=== PATIENT | male | born 1965 | race African-American/Black ===

== ENCOUNTER 2017-04-10 12:30 | Emergency (ER) | payer OTHER ==
--- NOTE | ~2017-04-10 | CT71 ---
[facility] A Service of [facility] RADIOLOGY TEXT RESULTS PATIENT: LOVE DOMINGUEZ LOCATION: [facility] : 63 UNIT #: [id number] AGE: [address]: SHAMIKA DENSON MD SEX: M ORDER DR: [id number] [facility] [address]. [place], [place] [address] [id number] I MR#: [id number] Acc #: [id number] NAME: LOVE DOMINGUEZ : 1965 SEX: M STUDY DATE/TIME: 04/10/2017 14:39 UNIT: CEDOF ROOM: 85040 STUDY DESCRIPTION: CT Head Wo Contrast Attending Physician: Shamika Denson M.D. Ordering Physician: Priyank Royal D.O. Primary Care Physician: Liudmila De Santiago M.D. MEDICAL IMAGING REPORT This report is preliminary unless electronic signature is present EXAM Noncontrast head CT. HISTORY Dizziness, weakness, fell today. History of hypertension. FINDINGS Axial noncontrast imaging of the brain demonstrates an approximately 3-cm focus of decreased attenuation within the left cerebellar hemisphere, which may represent a subacute or acute infarct. No hemorrhagic components identified. No mass effect or midline shift. The remainder of the brain parenchyma appears normal. No abnormal extraaxial fluid collections. Bony calvaria, skull base, mastoids and sinuses unremarkable. IMPRESSION A focal area of decreased attenuation in the left cerebellar hemisphere may represent an acute or subacute infarct. no mass effect or hemorrhagic transformation. Dictated by... Jos Walker M.D. THIS IS AN ELECTRONICALLY VERIFIED REPORT Jos Walker M.D. at 04/10/2017 11:17 PM Angela TD: 04/10/2017 19:02 JOB #: [id number] MEDICAL IMAGING REPORT [facility] A Service of [facility] RADIOLOGY TEXT RESULTS PATIENT: LOVE DOMINGUEZ LOCATION: [facility] : 63 UNIT #: [id number] AGE: [address]: SHAMIKA DENSON MD SEX: M ORDER DR: Page 1 of 1 COPY
--- NOTE | ~2017-04-10 | EKG ---
PATIENT: LOVE DOMINGUEZ UNIT #: [id number] Ventricular Rate: 55 BPM Atrial Rate: 55 BPM P-R Interval: 204 ms QRS Duration: 108 ms Q-T Interval: 492 ms QTC Calculation(Bezet): 470 ms P Zach[place]: 62 degrees Calculated R Zach[place]: -23 degrees Calculated T Zachary: -15 degrees Diagnosis Line: Sinus bradycardia Diagnosis Line: Nonspecific T wave abnormality Diagnosis Line: Prolonged QT Diagnosis Line: Abnormal ECG Diagnosis Line: When compared with ECG of 23-MAY-2014 09:03, Diagnosis Line: No significant change was found Diagnosis Line: Confirmed by TIFFANY MCGARRY MD ([id number]) on Diagnosis Line: 04/10/2017 10:12:00 PM INTERPRETING MD: VINEET
--- NOTE | ~2017-04-10 | HP ---
Unit #: [id number] #: [id number] Patient: LOVE DOMINGUEZ [id number] [address] [place], [place] [address] [id number] E MR#: [id number] NAME: LOVE DOMINGUEZ ROOM: Age: 52 Sex: M Admission Date: 04/10/2017 : 1965 Attending Physician: Priyank Royal D.O. Primary Care Physician: Liudmila De Santiago M.D. HISTORY AND PHYSICAL CHIEF COMPLAINT Dizziness. HISTORY OF PRESENT ILLNESS The patient is a 49-year-old male with a remote history of pulmonary embolus, arthritis and hypertension. He was brought to the emergency room complaining of dizziness. The patient stated he had worked outside in the sun and has been feeling dizzy since this morning. The patient is not able to stand up and had multiple falls today. The patient was checked in by his girlfriend, who called EMS to bring him to the hospital. The patient had a CT of the head that showed low attenuation in the left cerebral hemisphere, concerning for acute/subacute CVA. The patient is being admitted for the above reasons. The patient complains of nausea and vomiting and headache. Denies any cough. Denies any fever or chest pains. PAST MEDICAL HISTORY 1. History of PE. 2. Pneumonia. 3. Hypertension. 4. Possible bone cancer. PAST SURGICAL HISTORY 1. Bilateral knee arthroscopy. 2. Right knee replacement times two. SOCIAL HISTORY Smokes a pack of cigarettes daily. Denies alcohol or any illicit drug abuse. FAMILY HISTORY Reviewed and none. ALLERGIES Penicillin and aspirin. HOME MEDICATIONS The patient is on ibuprofen and Flexeril. REVIEW OF SYSTEMS Fourteen point review of systems was performed and only pertinent positive findings are described above. The remaining are negative. PHYSICAL EXAMINATION GENERAL: The patient is lying on the bed, not in acute distress. The Unit #: [id number] #: [id number] Patient: LOVE DOMINGUEZ patient is sleepy. VITALS: Temperature 97.6, pulse 59, respiratory rate 14, blood pressure 136/89, saturating 94% on room air. HEENT: Head atraumatic, normocephalic. Pupils equal, round and reactive to light and accommodation. Extraocular movements are intact. Dry mucous membranes. NECK: Supple. LUNGS: Decreased air entry at the bases. Positive for rhonchi. HEART: Regular rate and rhythm. ABDOMEN: Soft. Positive bowel sounds. EXTREMITIES: No cyanosis or clubbing. NEUROLOGIC: The patient is more sleepy and states that he is unable to move the extremities secondary to them feeling heavy. DIAGNOSTIC STUDIES IMAGING: Chest x-ray shows the heart size appears larger than 2014. This may represent true cardiac enlargement, although exaggeration of the contour may be secondary to slight patient rotation toward the left. Mild right infrahilar infiltrate. No pleural effusion or pneumothorax. LABORATORY: Glucose 115, sodium 138, potassium 3.7, chloride 103, bicarb 25, glucose 139, BUN 10, creatinine 0.9, AST 19, ALT 19, alkaline phosphatase 74, albumin 4, INR 1. White blood cell count 8.3, hemoglobin 14, hematocrit 43, platelets 158. ASSESSMENT 1. Stroke, CVA, acute/subacute. 2. Dizziness. 3. Nausea and vomiting. 4. Bradycardia. EKG shows sinus bradycardia at a rate of 55 beats per minute. QTC 470. Chest x-ray shows mild right hilar infiltrate. Probable pneumonia versus atypical. PLAN Admit to inpatient. The patient will have neurology consultation. Check MRI and echo. Continue with Zofran for supportive care. The patient will be on empiric IV antibiotics, levofloxacin for concerning pneumonia. Further recommendations will follow. Dictated by Luis Mackenzie/malini TD: 04/10/2017 16:19 JOB #: [id number] Unit #: [id number] #: [id number] Patient: LOVE DOMINGUEZ HISTORY AND PHYSICAL Page 1 of 1 X SHAMIKA JAMES MD HISTORY AND PHYSICAL
--- NOTE | ~2017-04-10 | CR72 ---
[facility] A Service of [facility] RADIOLOGY TEXT RESULTS PATIENT: LOVE DOMINGUEZ LOCATION: [facility] : 63 UNIT #: [id number] AGE: [address]: Priyank Royal DO SEX: M ORDER DR: [id number] [facility] [address] [place], [place] [address] [id number] E MR#: [id number] Acc #: [id number] NAME: LOVE DOMINGUEZ : 1965 SEX: M STUDY DATE/TIME: 04/10/2017 13:11 UNIT: [facility] ROOM: STUDY DESCRIPTION: CR Chest Single View Portable Attending Physician: Priyank Royal D.O. Ordering Physician: Priyank Royal D.O. Primary Care Physician: Liudmila Pro MEDICAL IMAGING REPORT This report is preliminary unless electronic signature is present EXAM AP portable chest, 04/10/2017 at 13:11 HISTORY Dizziness and weakness today. Fell at home. History of pulmonary embolism. History of smoking. Hypertension. COMPARISON None FINDINGS The patient is rotated toward the left. Heart size appears larger than on the previous study, which may be the result of aforementioned rotation. Ill-defined interstitial thickening is seen within the infrahilar right lung. Left lung appears relatively clear. No pleural effusion or pneumothorax is seen. IMPRESSION 1. The heart size appears larger than on the 05/23/2014 examination. This may represent true cardiac enlargement, although exaggeration of the contour may be secondary to slight patient rotation toward the left. 2. Mild right infrahilar infiltrate. 3. No pleural effusion or pneumothorax. Dictated by... Kayy Atkins M.D. THIS IS AN ELECTRONICALLY VERIFIED REPORT Kayy Atkins M.D. at 04/11/2017 2:01 PM Tika TD: 04/10/2017 15:36 [facility] A Service of [facility] RADIOLOGY TEXT RESULTS PATIENT: LOVE DOMINGUEZ LOCATION: [facility] : 63 UNIT #: [id number] AGE: [address]: Priyank Royal DO SEX: M ORDER DR: HOPE #: [id number] MEDICAL IMAGING REPORT Page 1 of 1 COPY
[~2017-04-10 12:30] MED LIST: CHOLESTEROL MED.; COUMADIN PO; LEVAQUIN; LORTAB 5/500 TA1 TA1 PO; LOVENOX SUBQ; PERCOCET; PREDNISONE PO; [UNRECOGNIZED DRUG - OTHER]
[2017-04-10 13:31] LABS: BASOPHIL% 0.6 % (0-2.5); EOSINOPHIL% 0.2 % (0.0-7.0); LYMPHOCYTE# 1.1 X10e3 (1.0-3.5); LYMPHOCYTE% 13.8 % (17.0-45.0); MEAN CELL VOLUME 84.2 FL (83-96); MEAN CORPUSCULAR HEMOGLOBIN 27.5 PG (28-34); MEAN CORPUSCULAR HGB CONC 32.6 g/dL (30-36); MEAN PLATELET VOLUME 9.1 FL (6.5-11.5); MONOCYTE# 0.4 X10e3 (0-1.0); MONOCYTE% 5.3 % (3.0-12.0); NEUTROPHIL# 6.6 X10e3 (1.5-7.1); NEUTROPHIL% 80.1 % (40-75); PLATELET COUNT 158 X10e3 (140-420); RED CELL DISTRIBUTION WIDTH 15.6 % (11.0-15.5); WHITE BLOOD COUNT 8.3 X10e3 (4.0-10.5)
[2017-04-10 13:37] LABS: DIFF IND NO
[2017-04-10 13:53] LABS: PARTIAL THROMBOPLASTIN TIME 23.8 SECONDS (23.5-31.3); PROTHROMBIN TIME (PATIENT) 10.8 SECONDS (10.0-11.7)
[2017-04-10 13:59] LABS: BILIRUBIN, DIRECT 0.1 mg/dL (0.0-0.2); BILIRUBIN,INDIRECT 0.7 mg/dL (0.0-0.9); BILIRUBIN,TOTAL 0.8 mg/dL (0.2-2.0); BUN/CREATININE RATIO 11.11; CALCIUM SERUM 8.5 mg/dL (8.4-10.2); CREATININE SERUM 0.9 mg/dL (0.6-1.4); GLOM FILT RATE Estimated 112.6 mL/min (>60); POTASSIUM 3.7 mmol/L (3.5-5.1); PROTEIN TOTAL SERUM 7.4 g/dL (6.0-8.3)
[2017-04-10] MEDS ORDERED: IBUPROFEN PO (15:22)
[2017-04-10] MEDS ORDERED: PATIENT'S PHARMACY (15:22)
[2017-04-10] MEDS ORDERED: FLEXERIL10 MG PO (15:22)
[2017-04-10 17:07] LABS: CHOLESTEROL 166 mg/dL (0-200); HDL CHOLESTEROL 22 mg/dL (29-75); LDL CHOLESTEROL 88 mg/dL (-130); LDL/HDL RATIO 4 RATIO (0-4); TRIGLYCERIDES 278 mg/dL (10-160)
[2017-04-10 17:17] LABS: POC - CKMB 6.6 ng/mL (0.0-7.9); POC - TROPONIN <0.05 ng/mL (<=0.05)
== END 2017-04-10 20:15 ==
LOC: CED 12:30 → CEDOF 17:05 → CED 17:05
PROVIDERS: Emergency Medicine; Internal Medicine
DX: I63.9 Cerebral infarction, unspecified (principal); I10 Essential (primary) hypertension; M19.90 Unspecified osteoarthritis, unspecified site; Z88.0 Allergy status to penicillin
CPT/HCPCS: 36415; 70450; 71010; 80048; 80061; 80076; 82553; 82947; 84484; 85025; 85610; 85730; 93005; 96361; 96374; 99285; J2405

== ENCOUNTER 2017-04-24 16:30 | Emergency (ER) | payer OTHER ==
--- NOTE | ~2017-04-24 | CT16 ---
[facility] A Service of [facility] RADIOLOGY TEXT RESULTS PATIENT: LOVE DOMINGUEZ LOCATION: [facility] : 63 UNIT #: [id number] AGE: [address]: Meet Kapadia MD SEX: M ORDER DR: [id number] [facility] [address] [place], [place] [address] [id number] E MR#: [id number] Acc #: [id number] NAME: LOVE DOMINGUEZ : 1965 SEX: M STUDY DATE/TIME: 04/24/2017 20:05 UNIT: [facility] ROOM: STUDY DESCRIPTION: CT Angio Chest for PE Attending Physician: Meet Kapadia M.D. Ordering Physician: Meet Kapadia M.D. Primary Care Physician: Liudmila Pro MEDICAL IMAGING REPORT This report is preliminary unless electronic signature is present EXAM CT angiogram chest with IV contrast. HISTORY Elevated D-dimer and back pain today. TECHNIQUE IV contrast and CT angiogram of the chest was performed with 3-D reconstructions. This CT exam was performed with one or more of the following radiation dose reduction techniques: automatic exposure control, adjustment of mA and/or kV according to patient size, and iterative reconstruction. FINDINGS There is no evidence of pulmonary embolus. Mild linear atelectasis or scarring in the lateral left base. No airspace infiltrates. Mild subpleural emphysema in the lung apices. No adenopathy. Normal caliber thoracic aorta. Exam sensitivity for detecting pulmonary emboli is partly limited by suboptimal IV contrast bolus density. IMPRESSION 1. No evidence of pulmonary embolus. 2. Exam sensitivity, however, is limited by suboptimal IV contrast bolus density, despite scan repetition. Small peripheral pulmonary emboli cannot be confidently excluded. 3. No evidence of active disease in the lungs. 4. Mild linear atelectasis or scarring in the lateral left base. Dictated by... Francisco Anderson M.D. [facility] A Service [facility] RADIOLOGY TEXT RESULTS PATIENT: LOVE DOMINGUEZ LOCATION: [facility] : 63 UNIT #: [id number] AGE: [address]: Meet Kapadia MD SEX: M ORDER DR: THIS IS AN ELECTRONICALLY VERIFIED REPORT Francisco Anderson M.D. at 04/25/2017 10:59 PM ANMOL/minnie TD: 04/25/2017 16:01 JOB #: [id number] MEDICAL IMAGING REPORT Page 1 of 1 COPY
--- NOTE | ~2017-04-24 | CR72 ---
[facility] A Service of [facility] RADIOLOGY TEXT RESULTS PATIENT: LOVE DOMINGUEZ LOCATION: [facility] : 63 UNIT #: [id number] AGE: [address]: Meet Kapadia MD SEX: M ORDER DR: [id number] [facility] [address] [place], [place] [address] [id number] E MR#: [id number] Acc #: [id number] NAME: LOVE DOMINGUEZ : 1965 SEX: M STUDY DATE/TIME: 04/24/2017 17:59 UNIT: [facility] ROOM: STUDY DESCRIPTION: CR Chest Single View Portable Attending Physician: Meet Kapadia M.D. Ordering Physician: Meet Kapadia M.D. MEDICAL IMAGING REPORT This report is preliminary unless electronic signature is present EXAM Portable chest 04/24/2017 HISTORY Cough. Chest congestion. Shortness of breath. Headache. Neck pain. Symptoms for 2 days. Smoking history for 47 years. Benign essential hypertension. FINDINGS A single AP portable view of the chest shows both lungs to be clear. The heart is normal in size. The mediastinal contour is normal. No significant bone abnormalities are seen. IMPRESSION Normal portable chest. Dictated by... Fredo De Paz M.D. THIS IS AN ELECTRONICALLY VERIFIED REPORT Fredo De Paz M.D. at 04/26/2017 6:19 AM OLIVIER/mikey TD: 04/25/2017 13:48 JOB #: [id number] MEDICAL IMAGING REPORT Page 1 of 1 COPY
--- NOTE | ~2017-04-24 | EKG ---
PATIENT: LOVE DOMINGUEZ UNIT #: [id number] Ventricular Rate: 76 BPM Atrial Rate: 76 BPM P-R Interval: 196 ms QRS Duration: 102 ms Q-T Interval: 396 ms QTC Calculation(Bezet): 445 ms P [place]: 49 degrees Calculated R [place]: -29 degrees Calculated T [place]: -27 degrees Diagnosis Line: Sinus rhythm with Premature supraventricular Diagnosis Line: complexes Diagnosis Line: Nonspecific T wave abnormality Diagnosis Line: Abnormal ECG Diagnosis Line: When compared with ECG of 10-APR-2017 12:58, Diagnosis Line: Premature supraventricular complexes are now Diagnosis Line: Present Diagnosis Line: Confirmed by NGUYEN SALAS MD ([id number]) on 04/26/2017 Diagnosis Line: 2:57:28 PM INTERPRETING MD: MARITZA HOOKS
[~2017-04-24 16:30] MED LIST changes: +FLEXERIL10 MG PO; +IBUPROFEN PO; +PATIENT'S PHARMACY
[2017-04-24 18:17] LABS: BASOPHIL# 0.1 X10e3 (0-0.3); BASOPHIL% 0.5 % (0-2.5); EOSINOPHIL# 0.2 X10e3 (0-0.7); EOSINOPHIL% 1.4 % (0.0-7.0); HEMATOCRIT 39.9 % (38.0-50.0); HEMOGLOBIN 12.9 gm/dL (13.0-16.0); LYMPHOCYTE# 2.2 X10e3 (1.0-3.5); MEAN CELL VOLUME 84.5 FL (83-96); MEAN CORPUSCULAR HEMOGLOBIN 27.4 PG (28-34); MEAN CORPUSCULAR HGB CONC 32.4 g/dL (30-36); MEAN PLATELET VOLUME 9.1 FL (6.5-11.5); MONOCYTE# 0.8 X10e3 (0-1.0); MONOCYTE% 6.5 % (3.0-12.0); NEUTROPHIL# 9.5 X10e3 (1.5-7.1); NEUTROPHIL% 74.6 % (40-75); PLATELET COUNT 157 X10e3 (140-420); RED BLOOD COUNT 4.72 X10e (3.90-5.60); RED CELL DISTRIBUTION WIDTH 15.2 % (11.0-15.5); WHITE BLOOD COUNT 12.8 X10e3 (4.0-10.5)
[2017-04-24 18:18] LABS: POC - CKMB 1.3 ng/mL (0.0-7.9); POC - TROPONIN <0.05 ng/mL (<=0.05)
[2017-04-24 18:19] LABS: DIFF IND NO
[2017-04-24 18:39] LABS: ALBUMIN SERUM 3.6 g/dL (3.5-5.0); BILIRUBIN, DIRECT 0.2 mg/dL (0.0-0.2); BILIRUBIN,INDIRECT 1.4 mg/dL (0.0-0.9); BILIRUBIN,TOTAL 1.6 mg/dL (0.2-2.0); BUN/CREATININE RATIO 6.36; CALCIUM SERUM 8.2 mg/dL (8.4-10.2); CREATININE SERUM 1.1 mg/dL (0.6-1.4); GLOM FILT RATE Estimated 88.4 mL/min (>60); PROTEIN TOTAL SERUM 6.9 g/dL (6.0-8.3)
[2017-04-24 20:01] LABS: POC - CKMB 1.3 ng/mL (0.0-7.9); POC - TROPONIN <0.05 ng/mL (<=0.05)
== END 2017-04-24 22:15 | disposition home or self-care (01) ==
LOC: CED 16:30
PROVIDERS: Emergency Medicine
DX: M54.9 Dorsalgia, unspecified (principal); F17.200 Nicotine dependence, unspecified, uncomplicated; Z88.0 Allergy status to penicillin; Z88.6 Allergy status to analgesic agent; Z79.899 Other long term (current) drug therapy
CPT/HCPCS: 36415; 71010; 71275; 80048; 80076; 82553; 83880; 84484; 85025; 85379; 93005; 96374; 99284; J1885; Q9967

== ENCOUNTER 2017-06-18 19:56 | Inpatient (IN) | payer OTHER ==
[~2017-06-18] VITALS: Ht 180.3 cm; Wt 143.2 kg
--- NOTE | ~2017-06-18 | CO ---
Unit #: [id number] #: [id number] Patient: LOVE DOMINGUEZ [id number] [facility]. [place], [place] [address] [id number] I MR#: [id number] NAME: LOVE DOMINGUEZ ROOM: 318 Age: 52 Sex: M Admission Date: 06/19/2017 : 1965 Attending Physician: Janny Kilpatrick M.D. Primary Care Physician: Liudmila De Santiago M.D. Consultation Date: 06/20/2017 CONSULTATION REPORT REASON FOR CONSULTATION Irregular heart beat and bradycardia with a history of CVA. HISTORY OF PRESENT ILLNESS This is a pleasant 52-year-old male with a past medical history of recent left cerebellar stroke in 03/2017; history of PE and DVT, had been on anticoagulation with Coumadin in the past, but has not been on any anticoagulation in the past several years; hypertension; arthritis; obstructive sleep apnea; and tobacco abuse. The patient was here at [facility] in 04/10/2017 with complaint of dizziness. He also had a CT of the head, that showed left cerebral hemisphere abnormality, concerning for subacute CVA. The patient was transferred to [facility] for further evaluation. He was seen by Neurology there. Their impression was the patient had a subacute left PICA stroke. CTA was unremarkable. He also had a SHANIQUE performed, which showed an EF of 55%, small PFO and mild left atrial enlargement. The etiology of his stroke was noted to be severe vessel disease. He also had bilateral lower extremity ultrasounds, which were negative. Cardiology also saw him at [facility] as they were consult consulted for asymptomatic bradycardia, which was thought to believe to be due to hypoxia. In this admission, the patient presents secondary to persistent nausea and vomiting. He tells me he was at home in his typical state of health, states this is usually very active, that he goes all day long. He states that on Monday, he was out, working on his car, he states thirsty and was drinking a lot of water. He began to develop vomiting of liquid that was persistent in nature. Reports multiple episodes, these continued. He also noted some blood-tinged streaks after his persistent vomiting, but no significant hematopoiesis. He also said that he was having some burning in his throat, but denies any history of GERD or dysphagia. The patient stated his throat felt funny, he just could not catch his breath, but he denied any complaints of chest pain, near syncope, or palpitations. We were asked to see the patient secondary to irregular heart beat. On review of telemetry strips, the patient does have episodes of bradycardia as low as 37 beats per minute. According to the nurses, this is both with sleep and without. He also was having some intermittent episodes of tachyarrhythmia, which appears to be PSVT. His EKG was performed, which shows at this time, normal sinus rhythm, rate of 68 beats per minute, left axis deviation, he does have T-wave abnormality with T-wave inversion in his inferior lateral leads. QTc Unit #: [id number] #: [id number] Patient: LOVE DOMINGUEZ interval of 469 milliseconds. The patient denies any prior cardiac history as far as MN or any recent ischemic workup. He actually states he has never had ischemic workup. His cardiac enzymes thus far have been negative. Initial arrival in the emergency room showed a creatinine of 2.4, today that is improved, his creatinine is 1.5. He had a chest x-ray as well, that showed no acute findings, no active disease. At present, he is resting in bed. He denies any complaints of chest pain. Currently, his rhythm is sinus rhythm. He currently denies any complaints of shortness of breath as well. PAST MEDICAL HISTORY 1. History of recent subacute left PICA stroke, no residual. 2. SHANIQUE at [facility], showed LVEF of 55% in 03/2017, small PFO, and mild left atrial enlargement. 3. History of PE and DVT in the remote past, had been on Lovenox and Coumadin, but has not been on any anticoagulation, he says for quite some time. 4. Hypertension. 5. Morbid obesity. PAST SURGICAL HISTORY 1. Colonoscopy with polyp removal. 2. Bilateral knee arthroscopy. 3. Right knee replacement x2. ALLERGIES Penicillin and aspirin. HOME MEDICATIONS 1. Lisinopril 10 mg p.o. daily. 2. Atorvastatin 40 mg p.o. daily. 3. Tylenol 1 tablet three times daily as needed p.r.n. 4. Vitamin B12 one tablet p.o. daily. 5. Loratadine 10 mg p.o. daily as needed. SOCIAL HISTORY The patient reports he has been a 2 pack per day smoker since he was age of 11. He states he has been smoking only 3 to 4 cigarettes a day as of late. Reports occasional alcohol use. Denies illicit drug use. He lives alone. He is and disabled. REVIEW OF SYSTEMS Negative for, 1. Recent weight loss or weight gain. 2. Intermittent dysphagia. Otherwise negative except what was stated above in the HPI. PHYSICAL EXAMINATION GENERAL: This is a pleasant 52-year-old male, in no acute distress. VITAL SIGNS: Temperature 98.1, respiratory rate 20, pulse is anywhere from 37 to 145, blood pressure 104/47 to 120/73. HEENT: Pupils are equal and round. Head is atraumatic and normocephalic. NECK: Trachea is midline. Neck is supple. No lymphadenopathy. No thyromegaly. Carotid upstrokes are normal. Unit #: [id number] #: [id number] Patient: LOVE DOMINGUEZ HEART: S1 and S2. Regular rate and rhythm. No murmurs, gallops, or rubs. LUNGS: Clear to auscultation. No adventitious breath sounds. No rales. No rhonchi. No wheezes. ABDOMEN: Obese, soft, nontender, and nondistended. Bowel sounds are present. EXTREMITIES: Pulses are palpable. No clubbing, cyanosis, or edema. NEUROLOGIC: The patient is awake, alert, and oriented. He moves all extremities equally. He follows commands with ease. DIAGNOSTIC STUDIES LABORATORY RESULTS: His troponin has been negative. Initial creatinine was 2.4, repeat today is 1.5, otherwise sodium 140, potassium 3.9, chloride 98, CO2 of 32, BUN 18, creatinine 1.5, and glucose 113. Coags are normal. Hemoglobin 13.3, hematocrit 39.9, WBCs 11.8, and platelet count 152. IMAGING STUDIES: Chest x-ray shows no active disease. CT of the head shows no acute findings. Chronic infarct with focal encephalomalacia in the posterior left cerebellar area. CARDIOVASCULAR STUDIES: EKG; normal sinus rhythm, left axis deviation, rate of 68 beats per minute, T-wave abnormality with T-wave inversion is noted in the inferolateral leads, QTc interval of 469 milliseconds. IMPRESSION 1. Persistent nausea and vomiting with questionable dysphagia. Denies any history of gastroesophageal reflux disease or dysphagia in the past. 2. Paroxysmal supraventricular tachycardia. 3. Sinus bradycardia. 4. Abnormal EKG, suggestive of ischemia. 5. Tachy-heidy syndrome. 6. Recent left cerebellar CVA. 7. Recent SHANIQUE with a left ventricular ejection fraction of 55%, small patent foramen ovale and left atrial enlargement at [facility]. 8. History of pulmonary embolism and deep venous thrombosis in the remote past, had been on anticoagulation with Lovenox and Coumadin, but currently is not on any anticoagulation. 9. Tobacco abuse. 10. Acute kidney injury. 11. Morbid obesity, BMI of 36. PLAN We have been asked to see the patient secondary to arrhythmias. After review of his telemetry strips, the patient does appear to have some tachy-heidy syndrome. He also has an abnormal EKG with suggestive of ischemic change. We would recommend to check a TSH and also schedule him for walking Lexiscan tomorrow to rule out any underlying coronary artery disease. Also, the patient has been instructed on the importance of weight loss, lifestyle modification, and also smoking cessation. At this time, he does have a CHADS-VASc score of about 3, we would recommend starting the patient on Lovenox mg/kg subcu b.i.d. and considering long-term anticoagulation with Eliquis 50 mg p.o. b.i.d. We will have the pillowcase cleaner to check cost on this, but however we were not started at this time, just check. We will also resume his atorvastatin 40 mg at bedtime. At present, his lisinopril is on hold secondary to his renal Unit #: [id number] #: [id number] Patient: LOVE DOMINGUEZ dysfunction. We will check troponin EKG, and BMP in the morning. Further recommendations pending Dr. Robertson's assessment. Dictated by... Anette Rivas A.P.R.N. LMW/modl TD: 06/21/2017 13:14 JOB #: [id number] CONSULTATION REPORT Page 1 of 1 X Anette Rivas APRN X CONSULTATION REPORT
--- NOTE | ~2017-06-18 | EKG ---
PATIENT: LOVE DOMINGUEZ UNIT #: [id number] Ventricular Rate: 54 BPM Atrial Rate: 54 BPM P-R Interval: 208 ms QRS Duration: 108 ms Q-T Interval: 516 ms QTC Calculation(Bezet): 489 ms P [place]: 68 degrees Calculated R [place]: -31 degrees Calculated T [place]: -117 degrees Diagnosis Line: Sinus bradycardia Diagnosis Line: Left axis deviation Diagnosis Line: Incomplete right bundle branch block Diagnosis Line: Left ventricular hypertrophy Diagnosis Line: T wave abnormality, consider inferolateral Diagnosis Line: ischemia Diagnosis Line: Abnormal ECG Diagnosis Line: When compared with ECG of 24-APR-2017 17:40, Diagnosis Line: Premature supraventricular complexes are no longer Diagnosis Line: Present Diagnosis Line: Incomplete right bundle branch block is now Diagnosis Line: Present Diagnosis Line: Confirmed by NGUYEN SALAS MD ([id number]) on 06/19/2017 Diagnosis Line: 7:52:57 PM INTERPRETING MD: MARITZA HOOKS
--- NOTE | ~2017-06-18 | CR72 ---
[facility] A Service of [facility] RADIOLOGY TEXT RESULTS PATIENT: LOVE DOMINGUEZ LOCATION: [facility] - : 63 UNIT #: [id number] AGE: [address]: Janny Kilpatrick MD SEX: M ORDER DR: [id number] [facility] [address] [place], [place] [address] [id number] I MR#: [id number] Acc #: [id number] NAME: LOVE DOMINGUEZ : 1965 SEX: M STUDY DATE/TIME: 06/18/2017 22:25 UNIT: [address] ROOM: [facility] STUDY DESCRIPTION: CR Chest Single View Portable Attending Physician: Janny Kilpatrick M.D. Ordering Physician: Sunil Lucio M.D. Primary Care Physician: Liudmila De Santiago M.D. MEDICAL IMAGING REPORT This report is preliminary unless electronic signature is present EXAM Portable chest HISTORY Shortness of air, congestion and cough since yesterday. FINDINGS The cardiac size is near the upper limits of normal. Normal pulmonary vascularity. Mildly tortuous descending thoracic aorta. Mild left lower thoracic curve. IMPRESSION No acute findings. No active disease. Dictated by... Francisco Anderson M.D. THIS IS AN ELECTRONICALLY VERIFIED REPORT Francisco Anderson M.D. at 06/19/2017 10:26 PM ANMOL/wan TD: 06/19/2017 12:01 JOB #: [id number] MEDICAL IMAGING REPORT Page 1 of 1 COPY
--- NOTE | ~2017-06-18 | EKG ---
PATIENT: LOVE DOMINGUEZ UNIT #: [id number] Ventricular Rate: 47 BPM Atrial Rate: 47 BPM P-R Interval: 210 ms QRS Duration: 100 ms Q-T Interval: 518 ms QTC Calculation(Bezet): 458 ms P [place]: 51 degrees Calculated R [place]: -26 degrees Calculated T Lackey: -84 degrees Diagnosis Line: Marked sinus bradycardia with 1st degree A-V block Diagnosis Line: ST and T wave abnormality, consider inferolateral Diagnosis Line: ischemia Diagnosis Line: Abnormal ECG Diagnosis Line: No previous ECGs available Diagnosis Line: Confirmed by NGUYEN SALAS MD ([id number]) on 06/21/2017 Diagnosis Line: 7:26:06 AM INTERPRETING MD: MARITZA HOOKS
--- NOTE | ~2017-06-18 | EKG ---
PATIENT: LOVE DOMINGUEZ UNIT #: [id number] Ventricular Rate: 65 BPM Atrial Rate: 65 BPM P-R Interval: 192 ms QRS Duration: 98 ms Q-T Interval: 444 ms QTC Calculation(Bezet): 461 ms P [place]: 57 degrees Calculated R [place]: -32 degrees Calculated T [place]: 23 degrees Diagnosis Line: Normal sinus rhythm Diagnosis Line: Left axis deviation Diagnosis Line: Nonspecific ST and T wave abnormality Diagnosis Line: Prolonged QT Diagnosis Line: Abnormal ECG Diagnosis Line: When compared with ECG of 19-JUN-2017 14:19, Diagnosis Line: No significant change was found Diagnosis Line: Confirmed by NGUYEN SALAS MD ([id number]) on 06/21/2017 Diagnosis Line: 7:11:39 PM INTERPRETING MD: MARITZA HOOKS
--- NOTE | ~2017-06-18 | EKG ---
PATIENT: LOVE DOMINGUEZ UNIT #: [id number] Ventricular Rate: 56 BPM Atrial Rate: 56 BPM P-R Interval: 188 ms QRS Duration: 110 ms Q-T Interval: 470 ms QTC Calculation(Bezet): 453 ms P [place]: 38 degrees Calculated R [place]: -34 degrees Calculated T [place]: 33 degrees Diagnosis Line: Sinus bradycardia with sinus arrhythmia Diagnosis Line: Left axis deviation Diagnosis Line: Abnormal ECG Diagnosis Line: When compared with ECG of 20-JUN-2017 06:30, Diagnosis Line: (unconfirmed) Diagnosis Line: Nonspecific T wave abnormality, improved in Diagnosis Line: Inferior leads Diagnosis Line: Confirmed by NGUYEN SALAS MD ([id number]) on 06/21/2017 Diagnosis Line: 7:21:38 PM INTERPRETING MD: MARITZA HOOKS
--- NOTE | ~2017-06-18 | EKG ---
PATIENT: LOVE DOMINGUEZ UNIT #: [id number] Ventricular Rate: 68 BPM Atrial Rate: 68 BPM P-R Interval: 194 ms QRS Duration: 102 ms Q-T Interval: 442 ms QTC Calculation(Bezet): 469 ms P [place]: 54 degrees Calculated R [place]: -32 degrees Calculated T [place]: 171 degrees Diagnosis Line: Normal sinus rhythm Diagnosis Line: Left axis deviation Diagnosis Line: T wave abnormality, consider inferolateral Diagnosis Line: ischemia Diagnosis Line: Left ventricular hypertrophy Diagnosis Line: Prolonged QT Diagnosis Line: Abnormal ECG Diagnosis Line: When compared with ECG of 19-JUN-2017 14:19, Diagnosis Line: (unconfirmed) Diagnosis Line: No significant change was found Diagnosis Line: Confirmed by NGUYEN SALAS MD ([id number]) on 06/19/2017 Diagnosis Line: 8:02:29 PM INTERPRETING MD: MARITZA HOOKS
--- NOTE | ~2017-06-18 | HP ---
Unit #: [id number] #: [id number] Patient: LOVE DOMINGUEZ 110854 [address] [address] [id number] I MR#: [id number] NAME: LOVE DMOINGUEZ ROOM: 318 Age: 52 Sex: M Admission Date: 06/19/2017 : 1965 Attending Physician: Janny Kilpatrick M.D. Primary Care Physician: Liudmila Pro HISTORY AND PHYSICAL CHIEF COMPLAINT Vomiting. HISTORY OF PRESENT ILLNESS A 52 year old with history of recent CVA admitted because of vomiting. According to him, it started 2 days prior to admission. He vomited at least 11 times, mostly clear liquid with nausea. No diarrhea. No abdominal pain. No fever. No chills. He also has problems swallowing for 1 day in duration. Mostly complains of right-sided weakness for at least 8 hours according to the ER chart. Currently he is denying any new weakness. No fever. No chills. He has cough. No phlegm. No leg swelling. No skin rash. PAST MEDICAL HISTORY 1. History of recent acute versus subacute infarcts diagnosed in March 2017. 2. History of PE. 3. Hypertension. 4. Morbid obesity. 5. History of bone cancer. 6. Bilateral knee arthroscopy. 7. Smoking. ALLERGIES Penicillin and aspirin. HOME MEDICATIONS 1. Aspirin. 2. B12. 3. Furosemide. 4. Atorvastatin. 5. Flexeril. 6. Advil. NOTE: I will get complete list from his pharmacy. SOCIAL HISTORY He smokes a few cigarettes a day. No alcohol. No drugs. REVIEW OF SYSTEMS No headache. No visual changes. No leg swelling. No skin rash. Reviewed 12-point systems with him, which are negative except as in the history of present illness. Unit #: [id number] #: [id number] Patient: LOVE DOMINGUEZ PHYSICAL EXAMINATION VITAL SIGNS: Temperature 98.9, pulse 72, respirations 14, blood pressure 102/66. GENERAL EXAMINATION: A 52 year old sitting on the bed, not in acute distress. Alert, oriented x3. HEENT: Pupils are equally reactive to light and accommodation. Dry mucosa present. NECK: Supple. HEART: S1, S2 heard. Regular rhythm. No murmurs. RESPIRATORY: Lungs are clear to auscultation. No crackles. No rhonchi. ABDOMEN: Soft, nontender. Bowel sounds are present. EXTREMITIES: No pedal edema. SKIN: No rash. NEUROLOGIC: The patient has mild right-sided weakness, 4/5. DIAGNOSTIC STUDIES LAB DATA: Troponins negative. Sodium 140, potassium 3.9, creatinine 1.5. WBC 11.8, hemoglobin 13.3, platelets 152. ASSESSMENT AND PLAN 1. A 52 year old admitted because of vomiting and difficulty swallowing. Vomiting x2. Likely viral. Currently better. Continue with IV fluids. 2. Dysphagia with right-sided weakness. Likely masking from dehydration and vomiting. The patient will be seen by neurology. I will ask speech to evaluate. 3. Recent CVA. Continue with aspirin. I am going to get his home medications. 4. History of PE. He is not on any anticoagulation. 5. Smoking. Advised to quit. I am going to start him on nicotine patch. 6. Acute kidney injury, likely from vomiting, prerenal. Continue with IV fluids. 7. The patient is morbidly obese with a BMI of 36. Dictated by Luis Byrd/alisson TD: 06/19/2017 11:12 JOB #: [id number] HISTORY AND PHYSICAL Page 1 of 1 X Janny Kilpatrick MD HISTORY AND PHYSICAL
--- NOTE | ~2017-06-18 | CT71 ---
[facility] A Service of [facility] RADIOLOGY TEXT RESULTS PATIENT: LOVE DOMINGUEZ LOCATION: [facility] : 63 UNIT #: [id number] AGE: [address]: Janny Kilpatrick MD SEX: M ORDER DR: [id number] [place] [id number] [facility]. [place], [place] [address] [id number] I MR#: [id number] Acc #: [id number] NAME: LOVE DOMINGUEZ : 1965 SEX: M STUDY DATE/TIME: 06/18/2017 23:47 UNIT: [facility] PCU ROOM: [facility] STUDY DESCRIPTION: CT Head Wo Contrast Attending Physician: Janny Kilpatrick M.D. Ordering Physician: Sunil Lucio M.D. Primary Care Physician: Liudmila De Santiago M.D. MEDICAL IMAGING REPORT This report is preliminary unless electronic signature is present EXAM CT brain without contrast HISTORY Loss of balance, vomiting, headache today. No injury. FINDINGS This CT exam was performed with one or more of the following radiation dose reduction techniques: Automatic exposure control, adjustment of mA and/or kV according to patient size, and iterative reconstruction. CT brain without contrast demonstrates small chronic infarct with focal encephalomalacia in the posterior left cerebellar hemisphere. No intracranial hemorrhage, mass or edema. No midline shift or ventricular dilatation, or extraaxial fluid collection is identified. Exam sensitivity is partly limited by motion. IMPRESSION 1. No acute findings. 2. Chronic infarct with focal encephalomalacia in the posterior left cerebellar hemisphere. Dictated by... Francisco Anderson M.D. THIS IS AN ELECTRONICALLY VERIFIED REPORT Francisco Anderson M.D. at 06/19/2017 10:27 PM DFL/psc TD: 06/19/2017 11:49 JOB #: [id number] [facility] A Service [facility] RADIOLOGY TEXT RESULTS PATIENT: LOVE DOMINGUEZ LOCATION: [facility] : 63 UNIT #: [id number] AGE: [address]: Janny Kilpatrick MD SEX: M ORDER DR: MEDICAL IMAGING REPORT Page 1 of 1 COPY
--- NOTE | ~2017-06-18 | BMI ---
[facility] Nutrition Therapy DATE: 06/19/17 Patient: LOVE DOMINGUEZ Physician: KENNETH Address: [address] [place] [address] Room/Bed: [address] [place] [address], Zip: [place] [address] Admit Date: 06/19/17 Date of : 63 Height: 5 11 Weight: 313 142 HIGH BMI NOTE: DX: TIA ANTHROPOMETRICS: HT: 71", WT: 313#, BMI: 43.6 DIET: HEART HEALTHY RECOMMENDATIONS: CONTINUE HEART HEALTHY DIET TO PROMOTE A STEADY WEIGHT LOSS TOWARDS A HEALTHY BMI OF 19-25 Respectfully, DARREN GREWAL RD, LD [employer] [facility] cc: client file
--- NOTE | ~2017-06-18 | DS ---
Unit #: [id number] #: [id number] Patient: LOVE DOMINGUEZ [id number] [address] [address] [id number] I MR#: [id number] NAME: LOVE DOMINGUEZ ROOM: 318 Age: 52 Sex: M Admission Date: 06/19/2017 : 1965 Discharge Date: Attending Physician: Janny Kilpatrick M.D. Primary Care Physician: Liudmila Pro DISCHARGE SUMMARY DISCHARGE DIAGNOSES 1. 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 The patient is going to [facility] for pacemaker placement. 2. Dysphagia with right side weakness, likely masking. No new strokes. 3. History of cerebrovascular accident, recent. The patient is on aspirin. 4. Vomiting, likely viral, resolved. 5. History of pulmonary embolism. Patient is not on anticoagulation. 6. Obstructive sleep apnea on continuous positive airway pressure. 7. Smoking. 8. Acute kidney injury, prerenal, likely from vomiting, stable. 9. Morbid obesity. Body mass index of 36. 10. History of bone cancer. 11. Morbid obesity. 12. History of bilateral knee arthroscopy. CONSULTATION Dr. Moran. PROCEDURE The patient had a cardiac cath which shows ejection fraction 40 to 45%. Normal coronaries. LAB DATA Sodium 140, potassium 3.9, creatinine 0.9. INR 0.9. WBC 8.9, hemoglobin 13.5, platelets 153. TSH 1.11. Hemoglobin A1C 5.8. Troponin is negative. CAT scan of the head: No acute findings. Chronic infarct with focal encephalomalacia in the posterior left cerebellar hemisphere present ALLERGIES Penicillin. DISCHARGE MEDICATIONS 1. Zofran 4 mg IV q.4 p.r.n. nausea. 2. Norvasc 5 mg p.o. daily. 3. Lipitor 40 mg daily. 4. Aspirin 81 mg daily. 5. Percocet 5 mg one to two tablets q.4 hours p.r.n. pain. 6. Nitroglycerin 0.4 sublingual every five minutes p.r.n. chest pain. 7. Vitamin B12 one tablet p.o. daily. The patient had echocardiogram which shows ejection fraction 50% with mild Unit #: [id number] #: [id number] Patient: LOVE DOMINGUEZ concentric left ventricular hypertrophy. HOSPITALIZATION COURSE 52 year old admitted because of vomiting, found to have abnormal heart rhythms. Tachybrady syndrome with high degree AV block with paroxysmal SVT. Patient seen by Cardiology. Patient had a cardiac cath. Ejection fraction 40 to 45%. Patient is being transferred to [facility] for permanent pacemaker placement. Dysphagia with right side weakness, likely from masking. Dysphagia likely from sore throat and vomiting. No new stroke as per Neurology. CAT scan of the head is negative. Obstructive sleep apnea. Continue using his CPAP. Stable. History of PE. Patient is not on anticoagulation. Follow with PCP for followup. Transfer to [facility] for pacemaker placement. Dictated by... Luis Byrd/matheus TD: 06/21/2017 12:35 JOB #: [id number] DISCHARGE SUMMARY Page 1 of 1 X Janny Kilpatrick MD X DISCHARGE SUMMARY
--- NOTE | ~2017-06-18 | CO ---
Unit #: [id number] #: [id number] Patient: LOVE DOMINGUEZ [id number] [facility] [address] [facility]. [place], [place] [address] [id number] Ene MR#: [id number] NAME: LOVE DOMINGUEZ ROOM: 318 Age: 52 Sex: M Admission Date: 06/19/2017 : 1965 Attending Physician: Janny Kilpatrick M.D. Primary Care Physician: Liudmila Pro CONSULTATION REPORT PRIMARY CARE PHYSICIAN Dr. Liudmila Pro. REASON FOR CONSULTATION Dysarthria, swallowing problems, and other issues. PATIENT IDENTIFICATION This is a 52-year-old right-handed male, who was evaluated in room 318 at [facility]. SOURCE OF INFORMATION Patient and previous records. He was seen by our nurse practitioner, Jannette Monreal on 04/10/2017. PROBLEM LIST 1. He was admitted for some nausea and vomiting. 2. History of possible subacute infarct diagnosed in 03/2017. He went to [facility], but I do not know what happened over there as we do not have any records. 3. History of PE. 4. Hypertension. 5. Morbid obesity. 6. History of bone cancer. 7. Bilateral knee arthroscopy. 8. Smoking. 9. Obstructive sleep apnea. HISTORY OF PRESENT ILLNESS This is a 52-year-old gentleman, who actually presented with some nausea and vomiting, dysarthria and dysphagia. There was a concern because in 03/2017 this gentleman was diagnosed with possibility of subacute stroke and I do not even have an MRI because he ended up at [facility]. Nonetheless, he was treated and did fairly well. So at this time, he presented with nausea and vomiting that raised flags and workup was initiated and stroke was of a concern, but when I am looking at history, he first started with nausea and started having retching and throwing up and then he had sore throat. He said that whenever he would drink coffee, it was burning him and he put his finger in it and it was not really very hot, so then he started chewing on and swallowing some ice chips and he said it felt like he was swallowing broken glass and before that he was drinking lot of free water and Gatorade, etc. He was concerned about dehydration, but now he is feeling very well that CT showed some old Unit #: [id number] #: [id number] Patient: LOVE DOMINGUEZ cerebellar type lesions, but he refuses MRI, says I am doing fine and I do not want to have any other treatment done anyway. He is awake, alert. He has no ataxia. He has obstructive sleep apnea of quite significant, but he denies any swallowing problems. He denies any breathing problems. He denies any ataxia. He denies any dysphagia. Actually, he wants to go home. No falls or injuries. No gait abnormalities. PAST MEDICAL HISTORY As discussed above. PAST SURGICAL HISTORY As discussed above. ALLERGIES Penicillin and aspirin. HOME MEDICATIONS 1. Aspirin. 2. B12. 3. Furosemide. 4. Atorvastatin. 5. Flexeril. 6. Advil. FAMILY HISTORY Denies any stroke in young. SOCIAL HISTORY The patient reports that he is disabled. He smokes about a pack a day. Denies use of alcohol and drugs. 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 I do not think he is working otherwise. REVIEW OF SYSTEMS CONSTITUTIONAL: Significant obstructive sleep apnea and prior strokes. No recent weight issues, fever, chills, rigor, or sweats. His BMI continues to be elevated. HEENT: Sore throat. NECK: Neck pain. CARDIOVASCULAR: No chest pain, clubbing, cyanosis, orthopnea, or palpitation. PULMONARY: No shortness of air, cough, or expectoration. No nausea, vomiting, diarrhea, or constipation. GENITOURINARY: None. EXTREMITIES: No extremity problems. BACK: No back problem. PSYCHIATRIC: No psychotic issue. NEUROLOGIC: Issue was prior stroke. No other hematologic, dermatologic, or endocrine problem. PHYSICAL EXAMINATION VITAL SIGNS: Temperature 98.1, pulse 66, respiratory rate 20, blood pressure 104/47. His systolic blood pressure was anywhere from 102 to 120, diastolic was 47 to 73, O2 saturations were 95% to 98%. Weight 330 Unit #: [id number] #: [id number] Patient: LOVE DOMINGUEZ pounds. BMI was 46. Repeat study showed 313 pounds. BMI was 43. NEUROLOGIC: The patient is awake. He is alert. He is oriented. He can name and he can follow commands. No right or left confusion. No finger agnosia. Cranial nerve examination demonstrates full christianson of vision to confrontation. Eye movements are conjugate. I did not see any ptosis. I did not see any nystagmus. Extraocular movements are intact. Sensation on the face and scalp are normal. Strength of muscles of facial expression normal. Hearing seemed to be intact. His tongue was midline. I could not visualize his oropharynx or uvula. From whatever I could see, the soft palate seems to be rising bilaterally symmetrically. Head turning was spontaneous with shoulder shrugs unremarkable. Motor examination; normal bulk, tone, strength was essentially 5/5. Sensory examination intact for soft touch and pain. Sensation; no extinction was seen. Romberg was not evaluated. Gait examination was deferred. Negative reflexes. Coordination was normal for [id number]-[id number]-to-finger and rapid alternating movements. DIAGNOSTIC STUDIES LABORATORY RESULTS: Reviewed. IMPRESSION The way it looks like this gentleman had more pharyngitis than anything else. I am not seeing anything suggesting stroke-like situation, but he refuses to go for MRI anywhere and he says all my symptoms are resolved and I want to be just observed and since the symptoms are gone and it was 2 to 3 days anyway, he would not have been a candidate for tPA or intervention. The only thing I am considering whether getting the evaluation done from other institution would not make any difference, other than that, I will observe, follow up with [facility] Neurology if he has been there before and go from there. Nothing else to change. Nothing else to add. If he has no swallowing problems, there is no breathing problem, there is no ataxia, there is no dysphagia or dysarthria, we will observe. Again, follow up with [facility]. Call me for any other questions, issues, or concerns. Dictated by... Luis Knxo/ezio TD: 06/21/2017 14:30 JOB #: [id number] Unit #: [id number] #: [id number] Patient: LOVE DOMINGUEZ CONSULTATION REPORT Page 1 of 1 X Jesse Sommer MD CONSULTATION REPORT
--- NOTE | ~2017-06-18 | CO ---
Unit #: [id number] #: [id number] Patient: LOVE MONTES [id number] [address] [place], [place] [address] [id number] I MR#: [id number] NAME: LOVE MONTES ROOM: 318 Age: 52 Sex: M Admission Date: 06/19/2017 : 1965 Attending Physician: Janny Kilpatrick M.D. Primary Care Physician: Liudmila De Santiago M.D. CONSULTATION REPORT HISTORY OF PRESENT ILLNESS Mr. Montes is a 52-year-old Afro-Grenadian male, who was admitted because of persistent vomiting. He vomited multiple times over the preceding two days. He felt like his throat was swollen and he had difficulty swallowing and breathing, so he was presented to the emergency room. He had no real abdominal pain. Upon arrival, his chest x-ray showed no infiltrate, mass, or congestion. Head CT scan showed chronic infarct with focal encephalomalacia in the posterior left cerebellar hemisphere. His creatinine was 2.4. It is fallen to 1.5 with hydration. Cardiac enzymes were negative. White blood cell count was 12,300, hematocrit was 44.8, platelet count was normal. PAST MEDICAL HISTORY Recent CVA, history of PE, hypertension, morbid obesity, "history of bone cancer." He also has a history of obstructive sleep apnea. He had a sleep study done at [facility] in the [facility], but [facility] never received results. He also had a home sleep test and they were unsure of the results of that. He has not started CPAP. He has a history of bilateral knee arthroscopy. ALLERGIES Penicillin. HOME MEDICATIONS B12, furosemide, atorvastatin, Flexeril, Advil. He does take aspirin at home. SOCIAL HISTORY Smokes a few cigarettes a day. No alcohol. No illicit drugs. FAMILY HISTORY Negative for lung disease. REVIEW OF SYSTEMS CONSTITUTIONAL: No fevers or chills. HEENT: As noted. CARDIAC: No chest pain or palpitations. GI: As noted. : No hematuria or dysuria. ENDOCRINE: No polyuria or polydipsia. HEMATOLOGIC: No easy bruising or bleeding. SKIN: No rash. He does have a history of snoring, multiple awakenings, and daytime Unit #: [id number] #: [id number] Patient: LOVE MONTES sleepiness. He has been told he stops breathing at night. He has had sleep studies done, but has not been told results. PHYSICAL EXAMINATION VITAL SIGNS: Blood pressure 130/80, pulse 73, respiratory rate 16, afebrile. HEENT: Normocephalic, atraumatic. Pupils are equal, round, and reactive. Sclerae nonicteric. Nasal passages patent. Posterior pharynx clear. Mallampati IV. NECK: Thick, supple. Trachea midline. No cervical or supraclavicular lymphadenopathy. Collar size about 18.5. LUNGS: Clear to auscultation and percussion. CARDIAC: Regular rate and rhythm. Could not appreciate murmur, rub, or gallop. ABDOMEN: Nontender. Bowel sounds present. No hepatosplenomegaly. EXTREMITIES: Without clubbing, cyanosis, or edema. NEUROLOGIC: Awake and oriented x3. Cranial nerves grossly intact. Muscle strength fairly symmetric. DIAGNOSTIC STUDIES LABORATORY RESULTS: Reviewed as noted. IMAGING STUDIES: Chest x-ray, personally reviewed as noted. IMPRESSION 1. Throat irritation with a sensation of difficulty swallowing and breathing related to persistent vomiting and probably acid reflux irritation to the upper airway. 2. Probable obstructive sleep apnea. 3. Recent cerebrovascular accident. 4. Morbid obesity. 5. History of pulmonary embolism. 6. History of tobacco use. RECOMMENDATIONS Throat symptoms seem to improve with resolution of vomiting, which is probably viral in nature. We would do no more invasive studies other than swallow study which has been done unless it does not improve and would try to visualize upper airway. He also need outpatient evaluation and treatment for obstructive sleep apnea. This is being apparently done through [facility]. We are happy to see and proceed with evaluation and treatment if previous evaluation has been nondiagnostic. We would also encourage smoking cessation and weight reduction diet. Further recommendations pending this. Dictated by... Luis Wolf/ezio TD: 06/21/2017 13:52 JOB #: [id number] CC: Luis Bazzi Unit #: [id number] #: [id number] Patient: LOVE MONTES CONSULTATION REPORT Page 1 of 1 X Henrique Rosado MD CONSULTATION REPORT
[2017-06-18 22:11] LABS: BASOPHIL# 0.1 X10e3 (0-0.3); BASOPHIL% 0.7 % (0-2.5); EOSINOPHIL% 0.2 % (0.0-7.0); HEMATOCRIT 44.8 % (38.0-50.0); HEMOGLOBIN 14.8 gm/dL (13.0-16.0); LYMPHOCYTE# 2.1 X10e3 (1.0-3.5); LYMPHOCYTE% 16.9 % (17.0-45.0); MEAN CELL VOLUME 84.1 FL (83-96); MEAN CORPUSCULAR HEMOGLOBIN 27.8 PG (28-34); MEAN CORPUSCULAR HGB CONC 33.1 g/dL (30-36); MEAN PLATELET VOLUME 9.1 FL (6.5-11.5); NEUTROPHIL# 9.2 X10e3 (1.5-7.1); NEUTROPHIL% 74.2 % (40-75); PLATELET COUNT 197 X10e3 (140-420); RED BLOOD COUNT 5.32 X10e (3.90-5.60); RED CELL DISTRIBUTION WIDTH 15.8 % (11.0-15.5); WHITE BLOOD COUNT 12.3 X10e3 (4.0-10.5)
[2017-06-18 22:12] LABS: DIFF IND NO
[2017-06-18 22:20] LABS: POC - CKMB 2.9 ng/mL (0.0-7.9); POC - TROPONIN <0.05 ng/mL (<=0.05)
[2017-06-18 22:25] LABS: PARTIAL THROMBOPLASTIN TIME 24.5 SECONDS (23.5-31.3); PROTHROMBIN TIME (PATIENT) 11.3 SECONDS (10.0-11.7)
[2017-06-18 22:33] LABS: ALBUMIN SERUM 4.7 g/dL (3.5-5.0); BILIRUBIN, DIRECT 0.2 mg/dL (0.0-0.2); BILIRUBIN,TOTAL 1.2 mg/dL (0.2-2.0); BUN/CREATININE RATIO 6.66; CALCIUM SERUM 9.6 mg/dL (8.4-10.2); CREATININE SERUM 2.4 mg/dL (0.6-1.4); GLOM FILT RATE Estimated 34.4 mL/min (>60); POTASSIUM 3.6 mmol/L (3.5-5.1); PROTEIN TOTAL SERUM 8.2 g/dL (6.0-8.3)
[2017-06-19 00:31] LABS: POC - CKMB 2.8 ng/mL (0.0-7.9); POC - TROPONIN <0.05 ng/mL (<=0.05)
[2017-06-19] MEDS ORDERED: ASPIRIN81 MG PO (05:48)
[2017-06-19] MEDS ORDERED: VITAMIN B122500 MCG PO (05:49)
[2017-06-19] MEDS ORDERED: ATORVASTATIN CA10 MG PO (07:34)
[2017-06-19 08:13] LABS: BASOPHIL# 0.1 X10e3 (0-0.3); BASOPHIL% 0.5 % (0-2.5); EOSINOPHIL# 0.1 X10e3 (0-0.7); HEMATOCRIT 39.9 % (38.0-50.0); HEMOGLOBIN 13.3 gm/dL (13.0-16.0); LYMPHOCYTE# 2.7 X10e3 (1.0-3.5); LYMPHOCYTE% 22.8 % (17.0-45.0); MEAN CORPUSCULAR HEMOGLOBIN 28.2 PG (28-34); MEAN CORPUSCULAR HGB CONC 33.2 g/dL (30-36); MEAN PLATELET VOLUME 8.8 FL (6.5-11.5); MONOCYTE# 1.1 X10e3 (0-1.0); MONOCYTE% 8.9 % (3.0-12.0); NEUTROPHIL# 7.9 X10e3 (1.5-7.1); NEUTROPHIL% 66.8 % (40-75); PLATELET COUNT 152 X10e3 (140-420); RED CELL DISTRIBUTION WIDTH 15.9 % (11.0-15.5); WHITE BLOOD COUNT 11.8 X10e3 (4.0-10.5)
[2017-06-19 08:16] LABS: DIFF IND NO
[2017-06-19 08:37] LABS: CALCIUM SERUM 8.4 mg/dL (8.4-10.2); CREATININE SERUM 1.5 mg/dL (0.6-1.4); GLOM FILT RATE Estimated 60.8 mL/min (>60); POTASSIUM 3.9 mmol/L (3.5-5.1)
[2017-06-19 08:53] LABS: %MB 1.2 % (0.0-4.0); MB 3.9 ng/ml
[2017-06-19 16:46] LABS: %MB 1.2 % (0.0-4.0); MB 4.2 ng/ml
[2017-06-20 07:23] LABS: BASOPHIL# 0.1 X10e3 (0-0.3); BASOPHIL% 0.8 % (0-2.5); EOSINOPHIL# 0.3 X10e3 (0-0.7); EOSINOPHIL% 2.5 % (0.0-7.0); HEMATOCRIT 39.6 % (38.0-50.0); HEMOGLOBIN 13.3 gm/dL (13.0-16.0); LYMPHOCYTE% 38.1 % (17.0-45.0); MEAN CELL VOLUME 85.1 FL (83-96); MEAN CORPUSCULAR HEMOGLOBIN 28.5 PG (28-34); MEAN CORPUSCULAR HGB CONC 33.5 g/dL (30-36); MEAN PLATELET VOLUME 9.4 FL (6.5-11.5); MONOCYTE# 0.8 X10e3 (0-1.0); MONOCYTE% 7.4 % (3.0-12.0); NEUTROPHIL# 5.4 X10e3 (1.5-7.1); NEUTROPHIL% 51.2 % (40-75); PLATELET COUNT 147 X10e3 (140-420); RED BLOOD COUNT 4.65 X10e (3.90-5.60); RED CELL DISTRIBUTION WIDTH 15.4 % (11.0-15.5); WHITE BLOOD COUNT 10.5 X10e3 (4.0-10.5)
[2017-06-20 07:24] LABS: DIFF IND NO
[2017-06-20 07:55] LABS: CALCIUM SERUM 8.1 mg/dL (8.4-10.2); GLOM FILT RATE Estimated 99.2 mL/min (>60)
[2017-06-21 04:57] LABS: HEMATOCRIT 41.1 % (38.0-50.0); HEMOGLOBIN 13.5 gm/dL (13.0-16.0); MEAN CELL VOLUME 84.5 FL (83-96); MEAN CORPUSCULAR HEMOGLOBIN 27.7 PG (28-34); MEAN CORPUSCULAR HGB CONC 32.8 g/dL (30-36); RED BLOOD COUNT 4.86 X10e (3.90-5.60); RED CELL DISTRIBUTION WIDTH 15.5 % (11.0-15.5); WHITE BLOOD COUNT 8.9 X10e3 (4.0-10.5)
[2017-06-21 05:12] LABS: INR 0.9; PARTIAL THROMBOPLASTIN TIME 30.1 SECONDS (23.5-31.3); PROTHROMBIN TIME (PATIENT) 10.3 SECONDS (10.0-11.7)
[2017-06-21 05:31] LABS: BUN/CREATININE RATIO 11.11; CALCIUM SERUM 8.5 mg/dL (8.4-10.2); CREATININE SERUM 0.9 mg/dL (0.6-1.4); GLOM FILT RATE Estimated 112.6 mL/min (>60); POTASSIUM 3.9 mmol/L (3.5-5.1)
== END 2017-06-21 13:47 | DRG 866 ==
LOC: CED 19:56 → C3A PCU 06-19 00:38 → CED 06-19 00:38 → C3A PCU 06-19 00:38 → CEDOF 06-19 00:38 → CED 06-19 00:42 → CEDOF 06-19 05:49 → C3A PCU 06-19 05:49
PROVIDERS: Emergency Medicine; Internal Medicine; Internal Medicine Cardiovascular Disease
PROC: 4A023N8 Measurement of Cardiac Sampling and Pressure, Bilateral, Percutaneous Approach (ICD-10-PCS; 2017-06-20)
PROC: B211YZZ Fluoroscopy of Multiple Coronary Arteries using Other Contrast (ICD-10-PCS; 2017-06-20)
PROC: B215YZZ Fluoroscopy of Left Heart using Other Contrast (ICD-10-PCS; 2017-06-20)
PROC: B310YZZ Fluoroscopy of Thoracic Aorta using Other Contrast (ICD-10-PCS; 2017-06-20)
PROC: B246YZZ Ultrasonography of Right and Left Heart using Other Contrast (ICD-10-PCS; principal; 2017-06-21)
DX: B34.9 Viral infection, unspecified (principal); N17.9 Acute kidney failure, unspecified; Q21.1 Atrial septal defect; I47.1 Supraventricular tachycardia; Z68.42 Body mass index [BMI] 45.0-49.9, adult; R13.10 Dysphagia, unspecified; Z86.711 Personal history of pulmonary embolism; Z79.82 Long term (current) use of aspirin; I44.30 Unspecified atrioventricular block; Z86.73 Personal history of transient ischemic attack (TIA), and cerebral infarction without residual deficits; Z87.442 Personal history of urinary calculi; I10 Essential (primary) hypertension; G47.33 Obstructive sleep apnea (adult) (pediatric); F17.210 Nicotine dependence, cigarettes, uncomplicated; Z71.6 Tobacco abuse counseling; Z96.651 Presence of right artificial knee joint; Z88.0 Allergy status to penicillin; E66.01 Morbid (severe) obesity due to excess calories; E86.0 Dehydration; Z85.830 Personal history of malignant neoplasm of bone; R73.9 Hyperglycemia, unspecified
CPT/HCPCS: 36415; 70450; 71010; 80048; 80076; 82150; 82550; 82553; 82947; 83036; 83690; 84443; 84484; 85025; 85027; 85610; 85730; 92610; 93005; 93306; 94660; 94760; 96361; 96374; 96375; 99152; 99153; 99291; C1769; C1887; C1894; C9113; G8996-GN; G8997-GN; G8998-GN; J0461; J1644; J1650; J2250; J2405; J2785; J3010